=== PATIENT | female | born 1970 | race American Indian/Alaskan Native ===

== ENCOUNTER 2019-11-04 09:47 | Emergency (ER) | payer SELFPAY ==
[2019-11-04 10:02] VITALS: BP 181/110
--- NOTE | 2019-11-04 10:41 | Emergency Department Report ---
Minor Respiratory - HPI Chief Complaint: Sore Throat Stated Complaint: SORE THROAT/SINUS/HEADACHE Time Seen by Provider: 11/04/19 10:39 Duration: 1 Day Pain Location: Throat Severity: mild Minor Respiratory: Yes Sore Throat, Yes Able to Tolerate Fluids, No Rhinorrhea, No Ear Pain, No Cough, No Sick Contacts, No Hemoptysis, No Chest Pain, No Shortness of Breath, No Fever Other History: Patient is a 49-year-old -[place] female comes to the ER today with a sore throat. She has found eating she does as the provider enters the room. She has no tachycardia, hypotension or fever. She has no cough or shortness of breath. No chest pain. Nurse ordered strep screen in triage which was negative. ED Review of Systems ROS: Stated complaint: SORE THROAT/SINUS/HEADACHE Other details as noted in HPI Comment: All other systems reviewed and negative ED Past Medical Hx - Past Medical History Previous Medical History?: Yes Hx Hypertension: Yes Additional medical history: Recovering narcotic addict. Tetanus status up-to-date - Surgical History Past Surgical History?: Yes Additional Surgical History: hernia repair - Family History Family history: no significant - Social History Smoking Status: Current Every Day Smoker Substance Use Type: None - Medications Home Medications: Home Medications Medication Instructions Recorded Confirmed Last Taken Type Cetirizine HCl [ZyrTEC] 10 mg PO DAILY #30 capsule 11/04/19 Unknown Rx Fluticasone [Flonase] 1 spray NS QDAY #1 bottle 11/04/19 Unknown Rx predniSONE [Deltasone] 20 mg PO DAILY #5 tablet 11/04/19 Unknown Rx Minor Respiratory Exam - Exam General: Vital signs noted. No distress. Alert and acting appropriately. HEENT: Yes Moist Mucous Membranes, No Pharyngeal Erythema, No Pharyngeal Exudates, No Rhinorrhea, No Conjuctival Injection, No Frontal Tenderness, No Maxillary Tenderness Ear: Neither TM Bulge, Neither TM Erythema, Neither EAC Pain, Neither EAC Discharge Neck: Yes Supple, No Adenopathy Lungs: Yes Good Air Exchange, No Wheezes, No Ronchi, No Stridor, No Cough, No Labored Respirations, No Retractions, No Use of Accessory Muscles, No Other Abnormal Lung Sounds Heart: Yes Regular, No Murmur Abdomen: Yes Normal Bowel Sounds, No Tenderness, No Peritoneal Signs Skin: No Rash, No Edema Neurologic: Alert and oriented, no deficits. Musculoskeletal: Unremarkable. ED Course Vital Signs 11/04/19 10:00 Temperature 98.6 F Pulse Rate 59 L Respiratory 20 Rate Blood Pressure 181/110 O2 Sat by Pulse 100 Oximetry ED Medical Decision Making - Medical Decision Making Vital Signs 11/04/19 10:00 Temperature 98.6 F Pulse Rate 59 L Respiratory 20 Rate Blood Pressure 181/110 O2 Sat by Pulse 100 Oximetry Labs 11/04/19 10:04 Group A Strep Rapid Negative Patient is in the ER because she is concerned she has Cobin. She has no fever. No dry cough. She is eating on exam. Vital signs are normal. Strep as ordered by the RN is negative. Patient has been educated on discharge plan of care and is being discharged home with PCP follow-up. - Differential Diagnosis Rule out URI Critical care attestation.: If time is entered above; I have spent that time in minutes in the direct care of this critically ill patient, excluding procedure time. ED Disposition Clinical Impression: Allergic rhinitis, History of hypertension, Non-adherence to medical treatment Disposition: DC-01 TO HOME OR SELFCARE Is pt being admited?: No Does the pt Need Aspirin: No Condition: Stable Instructions: Allergies (ED) Additional Instructions: MEDS ORDERED FOLLOW UP PCP REFERRAL BELOW HYDRATE WELL WITH WATER Prescriptions: predniSONE [Deltasone] 20 mg PO DAILY #5 tablet Fluticasone [Flonase] 1 spray NS QDAY #1 bottle Cetirizine HCl [ZyrTEC] 10 mg PO DAILY #30 capsule Referrals: MAXWELL XIE MD [Staff Physician] - 3-5 Days Time of Disposition: 10:40
== END 2019-11-04 11:14 | disposition home or self-care (01) ==
LOC: ED 09:47
DX: J30.9 Allergic rhinitis, unspecified (principal); I10 Essential (primary) hypertension; Z91.19 Patient's noncompliance with other medical treatment and regimen; F17.200 Nicotine dependence, unspecified, uncomplicated
CPT/HCPCS: 87116; 87430; 99283

== ENCOUNTER 2020-07-08 07:24 | Emergency (ER) | payer SELFPAY ==
--- NOTE | 2020-07-08 08:57 | Emergency Department Report ---
ED General Adult HPI - General Chief complaint: Urogenital-Female Stated complaint: POSS STD Time Seen by Provider: 07/08/20 08:11 Source: patient Mode of arrival: Ambulatory Limitations: No Limitations - History of Present Illness Initial comments: 50-year-old female with no complaints she presents to the emergency room stating that her boyfriend has an STD and she wants to be checked out. Patient denies any abdominal pain she has no vaginal discharge no current complaints at all. Patient's blood pressure is now 173/110 I discussed the elevated blood pressure with patient she states that she has a history of high blood pressure but is out of her lisinopril. Patient denies headache chest pain or shortness of breath Improves with: none Associated Symptoms: denies other symptoms Treatments Prior to Arrival: none - Related Data Previous Rx's Medication Instructions Recorded Last Taken Type Cetirizine HCl [ZyrTEC] 10 mg PO DAILY #30 capsule 11/04/19 Unknown Rx Fluticasone [Flonase] 1 spray NS QDAY #1 bottle 11/04/19 Unknown Rx predniSONE [Deltasone] 20 mg PO DAILY #5 tablet 11/04/19 Unknown Rx Lisinopril [Zestril] 5 mg PO DAILY #30 tablet 07/08/20 Unknown Rx Allergies Allergy/AdvReac Type Severity Reaction Status Date / Time povidone-iodine Allergy Rash Verified 11/04/19 09:49 [From Betadine] soap [From Betadine] Allergy Rash Verified 11/04/19 09:49 ED Review of Systems ROS: Stated complaint: POSS STD Other details as noted in HPI Comment: All other systems reviewed and negative Constitutional: no symptoms reported Respiratory: no symptoms reported Cardiovascular: denies: chest pain, palpitations, dyspnea on exertion, orthopnea, edema, syncope Endocrine: no symptoms reported Gastrointestinal: denies: abdominal pain, nausea, vomiting Genitourinary: denies: urgency, frequency, hematuria, discharge Musculoskeletal: denies: back pain, arthralgia Skin: denies: rash Neurological: denies: headache, weakness, numbness, abnormal gait, vertigo ED Past Medical Hx - Past Medical History Hx Hypertension: Yes Additional medical history: Recovering narcotic addict. Tetanus status up-to-date - Surgical History Additional Surgical History: hernia repair - Social History Smoking Status: Current Every Day Smoker Substance Use Type: Alcohol - Medications Home Medications: Home Medications Medication Instructions Recorded Confirmed Last Taken Type Cetirizine HCl [ZyrTEC] 10 mg PO DAILY #30 capsule 11/04/19 Unknown Rx Fluticasone [Flonase] 1 spray NS QDAY #1 bottle 11/04/19 Unknown Rx predniSONE [Deltasone] 20 mg PO DAILY #5 tablet 11/04/19 Unknown Rx Lisinopril [Zestril] 5 mg PO DAILY #30 tablet 07/08/20 Unknown Rx ED Physical Exam - General Limitations: No Limitations General appearance: alert, in no apparent distress - Head Head exam: Present: atraumatic - Eye Eye exam: Present: normal appearance - ENT ENT exam: Present: normal exam, mucous membranes moist - Neck Neck exam: Present: normal inspection - Respiratory Respiratory exam: Absent: respiratory distress, wheezes, rales, rhonchi - Cardiovascular Cardiovascular Exam: Present: regular rate, normal heart sounds - Back Exam Back exam: Present: normal inspection - Neurological Exam Neurological exam: Present: alert, oriented X3 - Psychiatric Psychiatric exam: Present: normal affect - Skin Skin exam: Present: warm, dry, intact, normal color ED Course Vital Signs 07/08/20 07/08/20 07:31 09:43 Temperature 98.6 F Pulse Rate 73 66 Respiratory 18 18 Rate Blood Pressure 173/110 Blood Pressure 189/113 [Right] O2 Sat by Pulse 100 99 Oximetry - Reevaluation(s) Reevaluation #1: 07/08/20 08:47 Patient remained asymptomatic and in no distress Critical Care Time: No Critical care attestation.: If time is entered above; I have spent that time in minutes in the direct care of this critically ill patient, excluding procedure time. ED Disposition Clinical Impression: Possible exposure to STD Hypertension Qualifiers: Hypertension type: essential hypertension Qualified Code(s): I10 - Essential (primary) hypertension Disposition: DC-01 TO HOME OR SELFCARE Is pt being admited?: No Does the pt Need Aspirin: No Condition: Stable Instructions: Safe Sex, Hypertension, Adult, Hypertension (ED) Additional Instructions: Please follow-up with the health department for STD screening and treatment if needed. Follow-up with Dr. Kumar for evaluation and treatment of your blood pressure. Return to the emergency room if you develop chest pain severe headache dizziness or weakness or changes in your vision Prescriptions: Lisinopril [Zestril] 5 mg PO DAILY #30 tablet Referrals: MAXWELL KUMAR MD [Staff Physician] - 3-5 Days [facility] [Outside] - 3-5 Days [facility] [Outside] - 3-5 Days [facility] [Outside] - 3-[address] [facility] [Outside] - 3-5 Days Time of Disposition: 08:56
[2020-07-08 09:51] VITALS: BP 189/113
== END 2020-07-08 09:44 | disposition home or self-care (01) ==
LOC: ED 07:24
DX: I10 Essential (primary) hypertension (principal); F17.200 Nicotine dependence, unspecified, uncomplicated; Z20.2 Contact with and (suspected) exposure to infections with a predominantly sexual mode of transmission; Z88.8 Allergy status to other drugs, medicaments and biological substances; Z79.899 Other long term (current) drug therapy; Z98.890 Other specified postprocedural states
CPT/HCPCS: 99281

== ENCOUNTER 2021-04-11 11:55 | Emergency (ER) | payer SELFPAY ==
[2021-04-11 13:08] VITALS: BP 154/105
--- NOTE | 2021-04-11 13:42 | Emergency Department Report ---
- General Chief Complaint: Sore Throat Stated Complaint: DIFFICULTY BREATHING Time Seen by Provider: 04/11/21 13:18 Source: patient Mode of arrival: Ambulatory Limitations: No Limitations - History of Present Illness Initial Comments: 50-year-old female with a past medical history of hypertension but noncompliant with the medication presents to the ER today with complaints of Covid-like symptoms and requesting a COVID-19 test. Patient states that his symptoms started couple days ago. Patient states that she thinks that she was exposed to the maintenance elvira at her apartment who apparently had Covid. She has not taken a Covid test since she has been sick, she states she was hoping to get one here in the ER today. She states that she has been having a dry cough which cau ses her entire chest to hurt, difficulty breathing, runny nose, nasal congestion, sore throat and a funny taste in her mouth. She denies any fever or chills. She denies any wheezing. She reports no GI or symptoms. She does admit to tobacco use. Other than her hypertension she denies any other significant past history. MD Complaint: cough, other (wants COVID test) - Related Data Previous Rx's Medication Instructions Recorded Last Taken Type Cetirizine HCl [ZyrTEC] 10 mg PO DAILY #30 capsule 11/04/19 Unknown Rx Fluticasone [Flonase] 1 spray NS QDAY #1 bottle 11/04/19 Unknown Rx predniSONE [Deltasone] 20 mg PO DAILY #5 tablet 11/04/19 Unknown Rx lisinopriL [Lisinopril] 10 mg PO DAILY #30 tablet 04/11/21 Unknown Rx Allergies Allergy/AdvReac Type Severity Reaction Status Date / Time povidone-iodine Allergy Rash Verified 11/04/19 09:49 [From Betadine] soap [From Betadine] Allergy Rash Verified 11/04/19 09:49 ED Review of Systems ROS: Stated complaint: DIFFICULTY BREATHING Other details as noted in HPI Comment: All other systems reviewed and negative Constitutional: denies: chills, fever Eyes: denies: eye pain, eye discharge, vision change ENT: throat pain, congestion, other (Rhinorrhea) Respiratory: cough, shortness of breath Cardiovascular: chest pain (Diffuse anterior chest pain secondary to cough) Gastrointestinal: denies: abdominal pain, nausea, vomiting, diarrhea, constipation, hematemesis, melena, hematochezia Genitourinary: denies: urgency, dysuria, frequency, hematuria, discharge, abnormal menses, dyspareunia Musculoskeletal: denies: back pain, joint swelling, arthralgia Skin: denies: rash, lesions Neurological: denies: headache, weakness, numbness, paresthesias, confusion, abnormal gait, vertigo Psychiatric: denies: anxiety, depression Hematological/Lymphatic: denies: easy bleeding, easy bruising ED Past Medical Hx - Past Medical History Previous Medical History?: Yes Hx Hypertension: Yes Additional medical history: Recovering narcotic addict. Tetanus status up-to-date - Surgical History Past Surgical History?: Yes Additional Surgical History: hernia repair - Social History Smoking Status: Current Every Day Smoker Substance Use Type: Alcohol - Medications Home Medications: Home Medications Medication Instructions Recorded Confirmed Last Taken Type Cetirizine HCl [ZyrTEC] 10 mg PO DAILY #30 capsule 11/04/19 Unknown Rx Fluticasone [Flonase] 1 spray NS QDAY #1 bottle 11/04/19 Unknown Rx predniSONE [Deltasone] 20 mg PO DAILY #5 tablet 11/04/19 Unknown Rx lisinopriL [Lisinopril] 10 mg PO DAILY #30 tablet 04/11/21 Unknown Rx ED Physical Exam - General Limitations: No Limitations ED Course Vital Signs 04/11/21 13:05 Temperature 98.1 F Pulse Rate 67 Respiratory 15 Rate Blood Pressure 154/105 O2 Sat by Pulse 100 Oximetry ED Medical Decision Making - Medical Decision Making 50-year-old female with a past medical history of hypertension but noncompliant with the medication presents to the ER today with complaints of Covid-like symptoms and requesting a COVID-19 test. Patient states that his symptoms started couple days ago. Patient states that she thinks that she was exposed to the maintenance elvira at her apartment who apparently had Covid. She has not taken a Covid test since she has been sick, she states she was hoping to get one here in the ER today. She states that she has been having a dry cough which causes her entire chest to hurt, difficulty breathing, runny nose, nasal congestion, sore throat and a funny taste in her mouth. She denies any fever or chills. She denies any wheezing. She reports no GI or symptoms. She does admit to tobacco use. Other than her hypertension she denies any other significant past history. Patient is well-appearing, nontoxic and not in any acute pain or respiratory distress. She has been observed ambulating back and forth to the triage desk asking how much longer before she gets seen without any distress. Patient vital signs are stable including a O2 sat at 100%. Her chest is clear to ausc ultation and she does have reproducible chest wall tenderness. She appears well- hydrated. She is neurologically intact. . Patient blood pressure was noted to be elevated at triage, and she admitted that she has not been compliant with her lisinopril for a "while". Patient symptoms likely related to a viral illness. Her history, and current physical exam does not suggest a stroke, TIA, unstable angina/OK, PE, Severe pneumonia, acute respiratory distress syndrome, sepsis or any other emergent conditions warranting any additional testing or admission at this time. Discussed suspected diagnosis with patient. Recommend that she get an outpatient Covid test at one the local urgent cares or pharmacies. She can take [id number] medication to help with symptoms. Patient expressed understanding of all instructions and agree with plan. Patient was stable at time of discharge. Critical care attestation.: If time is entered above; I have spent that time in minutes in the direct care of this critically ill patient, excluding procedure time. ED Disposition Clinical Impression: Viral illness, Chest wall pain, Noncompliance with medication regimen, Uncontrolled hypertension Disposition: 01 HOME / SELF CARE / HOMELESS Is pt being admited?: No Does the pt Need Aspirin: No Condition: Stable Instructions: Chest Wall Pain, [id number], Viral Illness, Adult, Managing Your Hypertension, Hypertension, Adult, Hypertension (ED) Additional Instructions: I recommend that you follow-up with one of the urgent cares or pharmacies to get an outpatient COVID-19 test. Recommend that you quarantine until you know the results of your test. You can take [id number] Zyrtec, Claritin or Rosa and Coricidin HP for your cough. You can take Tylenol and or ibuprofen as needed for pain. Recommend that you restart your lisinopril as prescribed. Follow-up with the primary care doctor listed in discharge instructions. Return to the ER if anything changes or worsens in any way. Prescriptions: lisinopriL [Lisinopril] 10 mg PO DAILY #30 tablet Referrals: [facility] [Provider Group] - 3-5 Days [facility] [Provider Group] - 3-5 Days Forms: Work/School Release Form(ED) Time of Disposition: 13:45
[2021-04-11] MEDS: IBUPROFEN 600 MG TAB PO ONE (14:00)
== END 2021-04-11 14:00 | disposition home or self-care (01) ==
LOC: ED 11:55
DX: B34.9 Viral infection, unspecified (principal); R07.89 Other chest pain; I10 Essential (primary) hypertension; F17.200 Nicotine dependence, unspecified, uncomplicated; Z72.89 Other problems related to lifestyle; Z91.048 Other nonmedicinal substance allergy status; Z88.6 Allergy status to analgesic agent; Z79.899 Other long term (current) drug therapy
CPT/HCPCS: 99282

== ENCOUNTER 2021-07-30 10:22 | Emergency (ER) | payer SELFPAY ==
[2021-07-30] MEDS ORDERED: LISINOPRIL 10 MG TAB PO ONE (11:08)
--- NOTE | 2021-07-30 11:14 | Emergency Department Report ---
ED Medical Clearance HPI - General Chief complaint: High BP Stated complaint: anxiety and hypertension Time Seen by Provider: 07/30/21 10:57 Source: patient Mode of arrival: Ambulatory - History of Present Illness Initial comments: Patient is a 51-year-old female presents emergency room with complaints of medical clearance. Patient states that she tried to check herself into a detox facility but reports that her blood pressure was too elevated so they advised she needed to be cleared medically. Patient states that she smokes crack. She denies any physical complaints at this time. She states that she has a past medical history of chronic hypertension is post to be taking lisinopril 10 mg daily. She states that she has been out of her medication for approximately 2 w eeks. She has an allergy to Betadine and IV dye. Home medications: Previous Rx's Medication Instructions Recorded Last Taken Type Cetirizine HCl [ZyrTEC] 10 mg PO DAILY #30 capsule 11/04/19 Unknown Rx Fluticasone [Flonase] 1 spray NS QDAY #1 bottle 11/04/19 Unknown Rx predniSONE [Deltasone] 20 mg PO DAILY #5 tablet 11/04/19 Unknown Rx lisinopriL [Lisinopril] 10 mg PO DAILY #30 tablet 07/30/21 Unknown Rx Allergies/Adverse reactions: Allergies Allergy/AdvReac Type Severity Reaction Status Date / Time povidone-iodine Allergy Rash Verified 11/04/19 09:49 [From Betadine] soap [From Betadine] Allergy Rash Verified 11/04/19 09:49 ED Review of Systems ROS: Stated complaint: anxiety and hypertension Other details as noted in HPI Comment: All other systems reviewed and negative ED Past Medical Hx - Past Medical History Hx Hypertension: Yes Additional medical history: Recovering narcotic addict. Tetanus status up-to-date - Surgical History Additional Surgical History: hernia repair - Social History Smoking Status: Current Every Day Smoker Substance Use Type: Alcohol - Medications Home Medications: Home Medications Medication Instructions Recorded Confirmed Last Taken Type Cetirizine HCl [ZyrTEC] 10 mg PO DAILY #30 capsule 11/04/19 Unknown Rx Fluticasone [Flonase] 1 spray NS QDAY #1 bottle 11/04/19 Unknown Rx predniSONE [Deltasone] 20 mg PO DAILY #5 tablet 11/04/19 Unknown Rx lisinopriL [Lisinopril] 10 mg PO DAILY #30 tablet 07/30/21 Unknown Rx ED Physical Exam - General Limitations: No Limitations General appearance: alert, in no apparent distress - Head Head exam: Present: atraumatic, normocephalic - Eye Eye exam: Present: normal appearance - ENT ENT exam: Present: mucous membranes moist - Respiratory Respiratory exam: Present: normal lung sounds bilaterally. Absent: respiratory distress, wheezes, rales, rhonchi, stridor, chest wall tenderness, accessory muscle use, decreased breath sounds, prolonged expiratory - Cardiovascular Cardiovascular Exam: Present: regular rate, normal rhythm, normal heart sounds. Absent: systolic murmur, diastolic murmur, rubs, gallop - Neurological Exam Neurological exam: Present: alert, oriented X3 - Psychiatric Psychiatric exam: Present: normal affect, normal mood - Skin Skin exam: Present: warm, dry, intact ED Course Vital Signs 07/30/21 07/30/21 10:23 14:39 Temperature 98.5 F 97.1 F L Pulse Rate 82 78 Respiratory 20 16 Rate Blood Pressure 175/112 152/103 [Right] O2 Sat by Pulse 98 100 Oximetry ED Medical Decision Making - Lab Data Result diagrams: 07/30/21 11:18 07/30/21 11:18 Lab Results 07/30/21 07/30/21 07/30/21 Range/Units 11:18 11:18 11:18 WBC 4.6 (4.5-11.0) K/mm3 RBC 4.44 (3.65-5.03) M/mm3 Hgb 13.8 (10.1-14.3) gm/dl Hct 43.4 H (30.3-42.9) % MCV 98 H (79-97) fl MCH 31 (28-32) pg MCHC 32 (30-34) % RDW 12.9 L (13.2-15.2) % Plt Count 168 (140-440) K/mm3 Lymph % (Auto) 52.2 H (13.4-35.0) % Colbert % (Auto) 7.0 (0.0-7.3) % Eos % (Auto) 1.8 (0.0-4.3) % Baso % (Auto) 0.5 (0.0-1.8) % Lymph # (Auto) 2.4 (1.2-5.4) K/mm3 Colbert # (Auto) 0.3 (0.0-0.8) K/mm3 Eos # (Auto) 0.1 (0.0-0.4) K/mm3 Baso # (Auto) 0.0 (0.0-0.1) K/mm3 Seg Neutrophils % 38.5 L (40.0-70.0) % Seg Neutrophils # 1.8 (1.8-7.7) K/mm3 Sodium 142 (137-145) mmol/L Potassium 3.0 L (3.6-5.0) mmol/L Chloride 104.7 (98-107) mmol/L Carbon Dioxide 24 (22-30) mmol/L Anion Gap 16 mmol/L BUN 12 (7-17) mg/dL Creatinine 0.6 (0.6-1.2) mg/dL Estimated GFR > 60 ml/min BUN/Creatinine Ratio 20 % Glucose 126 H (65-100) mg/dL Calcium 9.0 (8.4-10.2) mg/dL Total Bilirubin < 0.20 (0.1-1.2) mg/dL AST 13 (5-40) units/L ALT 9 (7-56) units/L Alkaline Phosphatase 109 (35-129) units/L Total Protein 6.4 (6.3-8.2) g/dL Albumin 4.1 (3.9-5) g/dL Albumin/Globulin Ratio 1.8 % Urine Color (Yellow) Urine Turbidity (Clear) Urine pH (5.0-7.0) Ur Specific Eden (1.003-1.030) Urine Protein (Negative) mg/dL Urine Glucose (UA) (Negative) mg/dL Urine Ketones (Negative) mg/dL Urine Blood (Negative) Urine Nitrite (Negative) Urine Bilirubin (Negative) Urine Urobilinogen (<2.0) mg/dL Ur Leukocyte Esterase (Negative) Urine WBC (Auto) (0.0-6.0) /HPF Urine RBC (Auto) (0.0-6.0) /HPF U Epithel Cells (Auto) (0-13.0) /HPF Salicylates < 0.3 L (2.8-20.0) mg/dL Urine Opiates Screen Urine Methadone Screen Acetaminophen (10.0-30.0) ug/mL Ur Barbiturates Screen Ur Phencyclidine Scrn Ur Amphetamines Screen U Benzodiazepines Scrn Urine Cocaine Screen U Marijuana (THC) Screen Drugs of Abuse Note Plasma/Serum Alcohol (0-0.07) % 07/30/21 07/30/21 07/30/21 Range/Units 11:18 11:18 Unknown WBC (4.5-11.0) K/mm3 RBC (3.65-5.03) M/mm3 Hgb (10.1-14.3) gm/dl Hct (30.3-42.9) % MCV (79-97) fl MCH (28-32) pg MCHC (30-34) % RDW (13.2-15.2) % Plt Count (140-440) K/mm3 Lymph % (Auto) (13.4-35.0) % Colbert % (Auto) (0.0-7.3) % Eos % (Auto) (0.0-4.3) % Baso % (Auto) (0.0-1.8) % Lymph # (Auto) (1.2-5.4) K/mm3 Colbert # (Auto) (0.0-0.8) K/mm3 Eos # (Auto) (0.0-0.4) K/mm3 Baso # (Auto) (0.0-0.1) K/mm3 Seg Neutrophils % (40.0-70.0) % Seg Neutrophils # (1.8-7.7) K/mm3 Sodium (137-145) mmol/L Potassium (3.6-5.0) mmol/L Chloride (98-107) mmol/L Carbon Dioxide (22-30) mmol/L Anion Gap mmol/L BUN (7-17) mg/dL Creatinine (0.6-1.2) mg/dL Estimated GFR ml/min BUN/Creatinine Ratio % Glucose (65-100) mg/dL Calcium (8.4-10.2) mg/dL Total Bilirubin (0.1-1.2) mg/dL AST (5-40) units/L ALT (7-56) units/L Alkaline Phosphatase (35-129) units/L Total Protein (6.3-8.2) g/dL Albumin (3.9-5) g/dL Albumin/Globulin Ratio % Urine Color Yellow (Yellow) Urine Turbidity Clear (Clear) Urine pH 5.0 (5.0-7.0) Ur Specific Eden 1.015 (1.003-1.030) Urine Protein <15 mg/dl (Negative) mg/dL Urine Glucose (UA) Neg (Negative) mg/dL Urine Ketones Neg (Negative) mg/dL Urine Blood Neg (Negative) Urine Nitrite Neg (Negative) Urine Bilirubin Neg (Negative) Urine Urobilinogen < 2.0 (<2.0) mg/dL Ur Leukocyte Esterase Neg (Negative) Urine WBC (Auto) 5.0 (0.0-6.0) /HPF Urine RBC (Auto) 1.0 (0.0-6.0) /HPF U Epithel Cells (Auto) 4.0 (0-13.0) /HPF Salicylates (2.8-20.0) mg/dL Urine Opiates Screen Urine Methadone Screen Acetaminophen 5.0 L (10.0-30.0) ug/mL Ur Barbiturates Screen Ur Phencyclidine Scrn Ur Amphetamines Screen U Benzodiazepines Scrn Urine Cocaine Screen U Marijuana (THC) Screen Drugs of Abuse Note Plasma/Serum Alcohol < 0.01 (0-0.07) % 07/30/21 Range/Units Unknown WBC (4.5-11.0) K/mm3 RBC (3.65-5.03) M/mm3 Hgb (10.1-14.3) gm/dl Hct (30.3-42.9) % MCV (79-97) fl MCH (28-32) pg MCHC (30-34) % RDW (13.2-15.2) % Plt Count (140-440) K/mm3 Lymph % (Auto) (13.4-35.0) % Colbert % (Auto) (0.0-7.3) % Eos % (Auto) (0.0-4.3) % Baso % (Auto) (0.0-1.8) % Lymph # (Auto) (1.2-5.4) K/mm3 Colbert # (Auto) (0.0-0.8) K/mm3 Eos # (Auto) (0.0-0.4) K/mm3 Baso # (Auto) (0.0-0.1) K/mm3 Seg Neutrophils % (40.0-70.0) % Seg Neutrophils # (1.8-7.7) K/mm3 Sodium (137-145) mmol/L Potassium (3.6-5.0) mmol/L Chloride (98-107) mmol/L Carbon Dioxide (22-30) mmol/L Anion Gap mmol/L BUN (7-17) mg/dL Creatinine (0.6-1.2) mg/dL Estimated GFR ml/min BUN/Creatinine Ratio % Glucose (65-100) mg/dL Calcium (8.4-10.2) mg/dL Total Bilirubin (0.1-1.2) mg/dL AST (5-40) units/L ALT (7-56) units/L Alkaline Phosphatase (35-129) units/L Total Protein (6.3-8.2) g/dL Albumin (3.9-5) g/dL Albumin/Globulin Ratio % Urine Color (Yellow) Urine Turbidity (Clear) Urine pH (5.0-7.0) Ur Specific Eden (1.003-1.030) Urine Protein (Negative) mg/dL Urine Glucose (UA) (Negative) mg/dL Urine Ketones (Negative) mg/dL Urine Blood (Negative) Urine Nitrite (Negative) Urine Bilirubin (Negative) Urine Urobilinogen (<2.0) mg/dL Ur Leukocyte Esterase (Negative) Urine WBC (Auto) (0.0-6.0) /HPF Urine RBC (Auto) (0.0-6.0) /HPF U Epithel Cells (Auto) (0-13.0) /HPF Salicylates (2.8-20.0) mg/dL Urine Opiates Screen Negative Urine Methadone Screen Negative Acetaminophen (10.0-30.0) ug/mL Ur Barbiturates Screen Negative Ur Phencyclidine Scrn Negative Ur Amphetamines Screen Negative U Benzodiazepines Scrn Negative Urine Cocaine Screen Positive U Marijuana (THC) Screen Negative Drugs of Abuse Note Disclamer Plasma/Serum Alcohol (0-0.07) % - Medical Decision Making Patient is a 51-year-old female presents emergency room with complaints of medical clearance. Patient states that she tried to check herself into a detox facility but reports that her blood pressure was too elevated so they advised she needed to be cleared medically. Patient states that she smokes crack. She denies any physical complaints at this time. She states that she has a past medical history of chronic hypertension is post to be taking lisinopril 10 mg daily. She states that she has been out of her medication for approximately 2 weeks. She has an allergy to Betadine and IV dye. It is with elevated blood pressure, otherwise stable. Patient given her usual dose of lisinopril and her blood pressure improved. Labs with hypokalemia, repleted with K-Dur. UA is within normal limits. UDS is positive for cocaine. Patient cleared medically at this time for detox. Patient given copy of her laboratory studies. Given prescription for her chronic hypertension medication. Advised patient Please take medication as prescribed. Increase your water intake. Please avoid drug use. Follow-up with your primary care doctor. eat a low-sodium diet. Return to emergency room for any new or worsening symptoms. ED Disposition Clinical Impression: Non compliance w medication regimen, Hypokalemia, Cocaine use HTN (hypertension) Qualifiers: Hypertension type: unspecified Qualified Code(s): I10 - Essential (primary) hypertension Disposition: 01 HOME / SELF CARE / HOMELESS Is pt being admited?: No Does the pt Need Aspirin: No Condition: Stable Instructions: Hypokalemia, Hypertension, Adult, Hypertension (ED) Additional Instructions: Please take medication as prescribed. Increase your water intake. Please avoid drug use. Follow-up with your primary care doctor. eat a low-sodium diet. Return to emergency room for any new or worsening symptoms. Prescriptions: lisinopriL [Lisinopril] 10 mg PO DAILY #30 tablet Referrals: PRIMARY CAREMD [Primary Care Provider] - 2-3 Days MAXWELL XIE MD [Staff Physician] - 3-5 Days [facility] [Provider Group] - 3-5 Days [facility], [LAB/CONTRACT] - 3-[address] [facility] [Outside] - 3-5 Days Forms: Work/School Release Form(ED) Time of Disposition: 14:08 Print Language: GAMBIAN
[2021-07-30 11:46] LABS: Basophils % (Auto) 0.5 % (0.0-1.8); Eosinophils # (Auto) 0.1 K/mm3 (0.0-0.4); Eosinophils % (Auto) 1.8 % (0.0-4.3); Hematocrit 43.4 % (30.3-42.9); Hemoglobin 13.8 gm/dl (10.1-14.3); Lymphocytes # (Auto) 2.4 K/mm3 (1.2-5.4); Lymphocytes % (Auto) 52.2 % (13.4-35.0); Mean Corpuscular HGB Conc 32 % (30-34); Mean Corpuscular Volume 98 fl (79-97); Monocytes # (Auto) 0.3 K/mm3 (0.0-0.8); Platelet Count 168 K/mm3 (140-440); Red Blood Count 4.44 M/mm3 (3.65-5.03); Red Cell Distribution Width 12.9 % (13.2-15.2)
[2021-07-30 12:10] LABS: Alanine Aminotransferase 9 units/L (7-56); Albumin 4.1 g/dL (3.9-5); Blood Urea Nitrogen 12 mg/dL (7-17); Hemolysis Index 6
[2021-07-30] MEDS ORDERED: POTASSIUM CHLORIDE ER 20 MEQ TAB PO ONE (12:12)
[2021-07-30 12:20] LABS: BUN/Creatinine Ratio 20
[2021-07-30 14:00] LABS: Bilirubin,Urine NEG (Negative); Blood,Urine NEG (Negative); Color,Urine Yellow (Yellow); Protein,Urine <15 mg/dL mg/dL (Negative); Urobilinogen,Urine < 2.0 mg/dL (<2.0)
[2021-07-30 14:07] LABS: Amphetamine Screen,Urine Negative; Benzodiazepines Screen,Urine Negative; Cannabinoid Screen,Urine Negative; Methadone Screen,Urine Negative; Opiate Screen,Urine Negative
[2021-07-30 14:42] LABS: Cocaine Screen,Urine Positive
[2021-07-30 14:44] VITALS: BP 152/103
== END 2021-07-30 14:44 | disposition home or self-care (01) ==
LOC: ED 10:22
DX: I10 Essential (primary) hypertension (principal); F17.200 Nicotine dependence, unspecified, uncomplicated; Z91.14 Patient's other noncompliance with medication regimen; E87.6 Hypokalemia; F14.10 Cocaine abuse, uncomplicated
CPT/HCPCS: 36415; 80053; 80307; 80320; 81001; 85025; 99283; G0480

== ENCOUNTER 2022-02-04 13:53 | Emergency (ER) | payer SELFPAY ==
--- NOTE | 2022-02-04 23:52 | XRay Report ---
CHEST 2 VIEWS INDICATION / CLINICAL INFORMATION: cough and chest congestion. COMPARISON: None available. FINDINGS: SUPPORT DEVICES: None. HEART / MEDIASTINUM: No significant abnormality. LUNGS / PLEURA: No significant pulmonary or pleural abnormality. No pneumothorax. ADDITIONAL FINDINGS: No significant additional findings. IMPRESSION: 1. No acute findings. Signer Name: Kristian Knight DO Signed: 02/04/2022 11:48 PM Workstation Name: [id number]
--- NOTE | 2022-02-05 00:13 | Emergency Department Report ---
- General Chief Complaint: Upper Respiratory Infection Stated Complaint: OVERALL FEELING OF ILLNESS Time Seen by Provider: 02/04/22 23:18 - History of Present Illness Initial Comments: 49-year-old [place] Citizen female smoker who reports having a positive contact with COVID and suspicion for abdulaziz the COVID virus presents emerged department complaining of cough congestion and coryza and seeking testing. She reports no diarrhea or constipation no hemoptysis no hematemesis hematochezia, no fevers but does have chills MD Complaint: cough, nasal congestion, other (Coryza) Severity: mild, moderate Quality: dull Consistency: constant Improves With: nothing Worsens With: nothing Associated Symptoms: denies other symptoms, rhinorrhea, cough, shortness of breath Treatments Prior to Arrival: none - Related Data Previous Rx's Medication Instructions Recorded Last Taken Type Cetirizine HCl [ZyrTEC] 10 mg PO DAILY #30 capsule 11/04/19 Unknown Rx Fluticasone [Flonase] 1 spray NS QDAY #1 bottle 11/04/19 Unknown Rx predniSONE [Deltasone] 20 mg PO DAILY #5 tablet 11/04/19 Unknown Rx lisinopriL [Lisinopril] 10 mg PO DAILY #30 tablet 07/30/21 Unknown Rx Albuterol Mdi (or & Nicu Only) 2 puff IH QID PRN #8.5 gram 02/05/22 Unknown Rx [ProAir HFA Inhaler] Benzonatate [Tessalon Perles] 100 mg PO Q8HR #30 cap 02/05/22 Unknown Rx predniSONE [Deltasone] 20 mg PO QDAY #5 tab 02/05/22 Unknown Rx Allergies Allergy/AdvReac Type Severity Reaction Status Date / Time povidone-iodine Allergy Rash Verified 11/04/19 09:49 [From Betadine] soap [From Betadine] Allergy Rash Verified 11/04/19 09:49 ED Review of Systems ROS: Stated complaint: OVERALL FEELING OF ILLNESS Other details as noted in HPI Comment: All other systems reviewed and negative ED Past Medical Hx - Past Medical History Hx Hypertension: Yes Additional medical history: Recovering narcotic addict. Tetanus status up-to-date - Surgical History Additional Surgical History: hernia repair - Social History Smoking Status: Current Every Day Smoker Substance Use Type: Alcohol - Medications Home Medications: Home Medications Medication Instructions Recorded Confirmed Last Taken Type Cetirizine HCl [ZyrTEC] 10 mg PO DAILY #30 capsule 11/04/19 Unknown Rx Fluticasone [Flonase] 1 spray NS QDAY #1 bottle 11/04/19 Unknown Rx predniSONE [Deltasone] 20 mg PO DAILY #5 tablet 11/04/19 Unknown Rx lisinopriL [Lisinopril] 10 mg PO DAILY #30 tablet 07/30/21 Unknown Rx Albuterol Mdi (or & Nicu Only) 2 puff IH QID PRN #8.5 gram 02/05/22 Unknown Rx [ProAir HFA Inhaler] Benzonatate [Tessalon Perles] 100 mg PO Q8HR #30 cap 02/05/22 Unknown Rx predniSONE [Deltasone] 20 mg PO QDAY #5 tab 02/05/22 Unknown Rx ED Physical Exam - General General appearance: alert, in no apparent distress - Head Head exam: Present: atraumatic, normocephalic - Eye Eye exam: Present: normal appearance, PERRL, EOMI Pupils: Present: normal accommodation - ENT ENT exam: Present: normal exam, normal orophraynx, mucous membranes moist, TM's normal bilaterally - Neck Neck exam: Present: normal inspection - Respiratory Respiratory exam: Present: normal lung sounds bilaterally. Absent: respiratory distress - Cardiovascular Cardiovascular Exam: Present: regular rate, normal rhythm. Absent: systolic murmur, diastolic murmur, rubs, gallop - GI/Abdominal GI/Abdominal exam: Present: soft, normal bowel sounds - Extremities Exam Extremities exam: Present: normal inspection - Back Exam Back exam: Present: normal inspection - Neurological Exam Neurological exam: Present: alert, oriented X3 - Psychiatric Psychiatric exam: Present: normal affect, normal mood - Skin Skin exam: Present: warm, dry, intact, normal color. Absent: rash ED Course Vital Signs 02/05/22 00:58 Temperature 98.2 F Pulse Rate 78 Respiratory 20 Rate Blood Pressure 149/96 [Left] O2 Sat by Pulse 110 H Oximetry ED Medical Decision Making - Radiology Data Radiology results: report reviewed Chest x-ray normal - Medical Decision Making Problem 1 coronavirus contact This patient presents to the emergency department with fever and lower respiratory symptoms concerning for viral syndrome including flu and COVID-19. Patient has suspicion and is for COVID-19 infection. Differential diagnosis includes other viral causes of lower respiratory symptoms, pneumonia, asthma, bronchitis. Patient is well-appearing with acceptable vitals, lacks comorbidities admission and a reassuring physical examination and is safe to be discharged home nasal swab for COVID testing is recommended. Provide strict return precautions and instructions on self isolation/quarantine and anticipatory guidance. Problem 2 cough this patient presents with acute cough, most consistent with URI, viral syndrome, COVID-19, asthma. Differential diagnosis includes GERD, bronchitis, pneumonia, asthma, COVID. Presentation not consistent with acute bacterial pneumonia, influenza, asthma, transient airway hyperresponsiveness. Presentation not consistent with chronic causes of cough (including GERD, asthma, postnasal discharge, medication side effect, CHF, lung cancer or mass). Plan: Normal CXR, supportive care, reassess Problem 3 shortness of breath Occasional shortness of breath off and on is able to ambulate and maintain normal saturation throughout the ambulation around emergency department. This patient presents with dyspnea most likely secondary to COPD. Differential diagnosis includes asthma, bronchitis, pleuritic pulmonary issue, viral syndrome. Presentation not consistent with acute cardiac etiologies to include ACS , CHF, pericardial effusion/tamponade. Presentation not consistent with acute respiratory etiologies to include acute pulmonary embolism ( PERC negative at the time of exam), pneumothorax, asthma, COPD exacerbation, infectious etiology such as pneumonia. The presentation also not consistent with known cardiopulmonary causes to include toxic syndrome, metabolic etiology such as acidemia or electrolyte derangements, sepsis, neurologic causes. Critical care attestation.: If time is entered above; I have spent that time in minutes in the direct care of this critically ill patient, excluding procedure time. ED Disposition Clinical Impression: Cough, SOB (shortness of breath) Disposition: 01 HOME / SELF CARE / HOMELESS Is pt being admited?: No Does the pt Need Aspirin: No Condition: Stable Instructions: Cool Mist Vaporizer, Shortness of Breath, Adult, [id number], COVID-19, Cough, Adult, [id number], COVID-19: How to Protect Yourself and Others - CDC, Cough, Adult Additional Instructions: You were evaluated emergency department today for cough. Chest x-ray did not show any evidence of any pneumonia and your cough is most likely due to a viral illness which will improve on its own with rest and fluids. You can take [id number] medications such as various skhn-ldb-ycjtzmf cough medications and also some decongestions to help diurese your symptoms. Due to positive contact with COVID it is recommended you to get a coronavirus test. You ambulated with pulse ox saturation maintained above 96% with no complications. Chest x-ray was normal Please schedule an appointment to follow-up with your primary care physician within 2 days Return to emergency department if you expands worsening cough, fever 101 100.4 or greater, recurrent vomiting, chest pain, shortness of breath or other concerning problems Prescriptions: predniSONE [Deltasone] 20 mg PO QDAY #5 tab Albuterol Mdi (or & Nicu Only) [ProAir HFA Inhaler] 2 puff IH QID PRN #8.5 gram PRN Reason: Shortness Of Breath Benzonatate [Tessalon Perles] 100 mg PO Q8HR #30 cap Referrals: [facility] [Provider Group] - 3-5 Days GENARO STANLEY MD [Staff Physician] - 3-5 Days [facility], [Primary Care Provider] - 3-5 Days
[2022-02-05 00:59] VITALS: BP 149/96
--- NOTE | 2022-02-05 12:18 | Electrocardiograph Report ---
[facility] Test Date: 2022-02-05 Test Time: 00:43:52 Pat Name: KIMANI TRIPLETT Department: Room: Gender: F Instructional Resource Teacher: SANDIE : 1970 Requested By: KAREN GRIFFIN Order Number: [id number] Reading MD: Estiven Humphrey Measurements Intervals [place] Rate: 60 P: 37 [place]: 149 QRS: 28 QRSD: 74 T: 163 QT: 414 QTc: 413 Interpretive Statements Sinus rhythm LVH with secondary repolarization abnormality Probable anterior infarct, age indeterminate No previous ECG available for comparison Electronically Signed On 02-05-2022 12:18:31 EDT by Estiven Humphrey
== END 2022-02-05 04:05 | disposition home or self-care (01) ==
LOC: ED 13:53
DX: R05.9 Cough, unspecified (principal); R06.02 Shortness of breath; F17.200 Nicotine dependence, unspecified, uncomplicated; F10.20 Alcohol dependence, uncomplicated; I10 Essential (primary) hypertension; Z88.8 Allergy status to other drugs, medicaments and biological substances
CPT/HCPCS: 71046; 93005; 99283